=== PATIENT | female | born 1940 | race Two or more races ===

== ENCOUNTER 2016-09-29 21:09 | Emergency (ER) | payer OTHER ==
[2016-09-29] MEDS ORDERED: DICLOFENAC SODI50 M1 (21:35)
[2016-09-29] MEDS ORDERED: MEDROL4 M2 PO (23:07)
[2016-09-29] MEDS ORDERED: VALIUM2 M1 PO (23:07)
[2016-09-29] MEDS ORDERED: PERCOCET 5-3251 EACH PO (23:07)
== END 2016-09-29 23:32 ==
LOC: EDMED 21:09
DX: S39.012A Strain of muscle, fascia and tendon of lower back, initial encounter (principal); M54.32 Sciatica, left side; M81.0 Age-related osteoporosis without current pathological fracture; Z90.89 Acquired absence of other organs; Z98.890 Other specified postprocedural states; Z79.1 Long term (current) use of non-steroidal anti-inflammatories (NSAID); X50.1XXA Overexertion from prolonged static or awkward postures, initial encounter; Y93.89 Activity, other specified; Y99.8 Other external cause status
CPT/HCPCS: J1100; J1885